=== PATIENT | male | born 1980 | race American Indian/Alaskan Native ===

== ENCOUNTER 2020-04-30 17:49 | Emergency (ER) | payer MEDICAID ==
[2020-04-30] MEDS ORDERED: Sodium Chloride 0.9% 1,000 ML IV STA ×2 (18:40→21:07)
[2020-04-30] MEDS ORDERED: FLU VACC QS2020-21(6MOS UP)/PF 60 MCG/0.5 ML SYRINGE IM ONE (19:30)
--- NOTE | 2020-04-30 20:31 | EDM.PDOC ---
<Cristino Garcia - Last Filed: 05/01/20 03:36> ED HPI GENERAL MEDICAL PROBLEM - General Chief Complaint: Drug or Alcohol Abuse Stated Complaint: [facility] Time Seen by Provider: 04/30/20 18:27 - Related Data Allergies Allergy/AdvReac Type Severity Reaction Status Date / Time No Known Allergies Allergy Verified 04/30/20 18:01 Home Meds: Home Meds . [No Known Home Meds] 04/30/20 [History] Course - Re-Assessments/Exams Free Text/Narrative Re-Assessment/Exam: 05/01/20 03:36 Taking over for Mary. The patient slept most of the night. We are discharging him early in the morning. Departure - Departure Time of Disposition: 15:40 Disposition: Home, Self-Care 01 Condition: Good Clinical Impression: Alcohol abuse Alcohol intoxication Qualifiers: Complication of substance-induced condition: uncomplicated Qualified Code(s): F10.920 - Alcohol use, unspecified with intoxication, uncomplicated - Discharge Information *PRESCRIPTION DRUG MONITORING PROGRAM REVIEWED*: Not Applicable *COPY OF PRESCRIPTION DRUG MONITORING REPORT IN PATIENT JOSE J: Not Applicable Instructions: Alcohol Use Disorder, Alcohol Intoxication, [id number] Referrals: PCP,None [Primary Care Provider] - Forms: ED Department Discharge Additional Instructions: Go home and rest. Drink plenty of water today. Do not drink alcohol. If you need help stopping, contact [facility] at . Please return if you are worse. <Mary Campos - Last Filed: 05/01/20 11:37> ED HPI GENERAL MEDICAL PROBLEM - General Source of Information: Reports: Patient History Limitations: Reports: Intoxication - History of Present Illness INITIAL COMMENTS - FREE TEXT/NARRATIVE: Patient is a 39-year-old male brought into the emergency department by [facility] for alcohol intoxication. Per EMS report, he was found lying in the park with a bottle of alcohol lying next to him. Patient reportedly stated that he needed an ambulance. Patient appears to be quite intoxicated. States that he drinks once a week. Today he was drinking vodka but he does not know how much. He is homeless and is on his way to [employer] for work. He reports that his and child are in [place]. He is from [place] and just came to [place] recently. Past Medical History - Past Health History Medical/Surgical History: Denies Medical/Surgical History Psychiatric History: Reports: Other (See Below) Other Psychiatric History: Pt presents to ER for Alcohol Intoxication - pt reports that he drank over 1 liter of Vodka - Infectious Disease History Infectious Disease History: Reports: None Social & Family History - Family History Family Medical History: Noncontributory - Tobacco Use Smoking Status *Q: Never Smoker Second Hand Smoke Exposure: No - Caffeine Use Caffeine Use: Reports: None - Recreational Drug Use Recreational Drug Use: No ED ROS GENERAL - Review of Systems Review Of Systems: Unable To Obtain Reason Not Obtained: Intoxication ED EXAM, GENERAL - Physical Exam Exam: See Below Exam Limited By: Intoxication General Appearance: Alert, WD/WN, No Apparent Distress Respiratory/Chest: No Respiratory Distress, Lungs Clear, Normal Breath Sounds, No Accessory Muscle Use, Chest Non-Tender Cardiovascular: Normal Peripheral Pulses, Regular Rate, Rhythm, No Edema, No Gallop, No JVD, No Murmur, No Rub Neurological: Alert, Oriented, Other (Limited communication due to intoxication. He is aware that he is in the hospital and that the ambulance brought him here.) Psychiatric: Normal Affect, Normal Mood Skin Exam: Warm, Dry, Intact, Normal Color, No Rash Course - Vital Signs Last Recorded V/S: Last Vital Signs Temp 97.9 F 04/30/20 17:57 Pulse 106 H 04/30/20 17:57 Resp 16 04/30/20 17:57 BP 125/82 04/30/20 17:57 Pulse Ox 93 L 04/30/20 17:57 - Orders/Labs/Meds Labs: Laboratory Tests 04/30/20 04/30/20 Range/Units 18:56 18:56 WBC 4.58 (4.23-9.07) K/mm3 RBC 4.66 (4.63-6.08) M/mm3 Hgb 14.6 (13.7-17.5) gm/dl Hct 42.2 (40.1-51.0) % MCV 90.6 (79.0-92.2) fl MCH 31.3 (25.7-32.2) pg MCHC 34.6 (32.2-35.5) g/dl RDW Std Deviation 48.2 H (35.1-43.9) fL Plt Count 298 (163-337) K/mm3 MPV 10.3 (9.4-12.3) fl Neut % (Auto) 47.1 (34.0-67.9) % Lymph % (Auto) 48.3 (21.8-53.1) % [place] % (Auto) 2.8 L (5.3-12.2) % Eos % (Auto) 0.7 L (0.8-7.0) Baso % (Auto) 0.9 (0.1-1.2) % Neut # (Auto) 2.16 (1.78-5.38) K/mm3 Lymph # (Auto) 2.21 (1.32-3.57) K/mm3 [place] # (Auto) 0.13 L (0.30-0.82) K/mm3 Eos # (Auto) 0.03 L (0.04-0.54) K/mm3 Baso # (Auto) 0.04 (0.01-0.08) K/mm3 Sodium 146 H (136-145) mEq/L Potassium 3.4 L (3.5-5.1) mEq/L Chloride 105 (98-107) mEq/L Carbon Dioxide 26 (21-32) mEq/L Anion Gap 18.4 H (5-15) BUN 9 (7-18) mg/dL Creatinine 1.1 (0.7-1.3) mg/dL Est Cr Clr Drug Dosing TNP Estimated GFR (MDRD) > 60 (>60) mL/min BUN/Creatinine Ratio 8.2 L (14-18) Glucose 100 (74-106) mg/dL Calcium 8.0 L (8.5-10.1) mg/dL Total Bilirubin 0.5 (0.2-1.0) mg/dL AST 259 H (15-37) U/L ALT 164 H (16-63) U/L Alkaline Phosphatase 84 (46-116) U/L Total Protein 7.8 (6.4-8.2) g/dl Albumin 4.0 (3.4-5.0) g/dl Globulin 3.8 gm/dL Albumin/Globulin Ratio 1.1 (1-2) Ethyl Alcohol 0.46 (0.00) gm% Meds: Medications Discontinued Medications Generic Name Dose Route Start Last Admin Trade Name Freq PRN Reason Stop Dose Admin Sodium Chloride 1,000 mls @ 999 mls/hr 04/30/20 18:40 04/30/20 19:05 Normal Saline IV 04/30/20 19:40 999 mls/hr NOW STA Administration Sodium Chloride 1,000 mls @ 150 mls/hr 04/30/20 21:07 04/30/20 21:12 Normal Saline IV 05/01/20 03:46 150 mls/hr NOW STA Administration Influenza Virus Vaccine 60 mcg 04/30/20 19:30 04/30/20 21:13 Fluzone Quad Syringe IM 04/30/20 19:31 60 mcg .ONCE ONE Administration - Re-Assessments/Exams Free Text/Narrative Re-Assessment/Exam: Patient is a 39-year-old male brought in by [facility] for acute alcohol intoxication. He was found sleeping in a park with a empty bottle of vodka lying next to him. Exam, patient is quite intoxicated, however does respond to questions although it is quite difficult to understand him. He says he only drinks once a week. He states he has been drinking vodka today and does not know how much. He is on his way to my [facility] for a job. He has a and son who are in [place]. I have ordered a CBC, CMP, EtOH.. We will give him a 1 L bolus of normal saline. Followed by normal saline at 150 mils per hour 04/30/20 22:46 Hematology was significant for a sodium elevated at 146, potassium slightly low at 3.4, anion gap 18.4, AST 259, ALT 164, blood alcohol 0.46. Patient is somewhat more lucid. He has been able to eat a sandwich and is resting comfortably now. States he is try to call his but she is "really mad at me ". We will allow him to rest and continue to sober up. Case discussed with Dr. Garcia . He will assume care and disposition at end of shift. Sepsis Event Note (ED) - Evaluation Sepsis Screening Result: No Definite Risk
== END 2020-05-01 05:50 | disposition home or self-care (01) ==
LOC: JD.ED 17:49
DX: F10.120 Alcohol abuse with intoxication, uncomplicated (principal); Y90.8 Blood alcohol level of 240 mg/100 ml or more; Z23 Encounter for immunization
CPT/HCPCS: 36415; 80053; 80307; 85025; 90471; 90686; 96360; 96361; 99284; J7030; 99283; G0008